=== PATIENT | male | born 2005 | race Caucasian/White ===

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

== ENCOUNTER 2024-07-23 16:11 | Emergency (ER) | payer OTHER, SELFPAY ==
[2024-07-23 16:30] VITALS: BP 120/50; PULSE 84; RESP 16; TEMP 36.7; O2SAT 100; BMI 25.8
--- NOTE | 2024-07-23 16:36 | ED.GENADULT ---
HPI - General Adult General Chief complaint: Urogenital-Male Stated complaint: STD check Time Seen by Provider: 07/23/24 16:44 Source: patient, RN notes reviewed and old records reviewed Mode of arrival: ambulatory Limitations: no limitations History of Present Illness ED Provider: Sarah MORENO narrative: 19-year-old male presents for evaluation of STD screening. patient reports that he was hooking up with a girl that also hooked up with some of my friends. a punching my friend said that they tested positive for either gonorrhea or chlamydia the patient denies any signs or symptoms currently no other complaints or concerns at this time Related Data Previous Rx's ?Medication ?Instructions ?Recorded albuterol sulfate 90 mcg/actuation 2 puff inhalation Q4-6H PRN 06/15/21 aerosol inhaler shortness of breath or wheezing #8.5 grams albuterol sulfate 2.5 mg/3 mL 2.5 mg (3 mL) inhalation Q4-6H PRN 08/08/21 (0.083 %) solution for nebulization shortness of breath or wheezing #15 mL ondansetron 4 mg disintegrating 4 mg PO TID PRN nausea and 11/19/23 tablet vomiting 5 days #10 tabs pantoprazole 40 mg tablet,delayed 40 mg PO DAILY #14 tabs 11/19/23 release (Protonix) doxycycline hyclate 100 mg tablet 100 mg PO BID #20 tabs 07/23/24 Allergies Allergy/AdvReac Type Severity Reaction Status Date / Time No Known Allergies Allergy Verified 07/23/24 16:38 [No Known Allergies*] Review of Systems Constitutional: Constitutional: Denies chills and Denies fever(s) Gastrointestinal: Gastrointestinal: Denies abdominal pain Genitourinary: Genitourinary: Denies genital pain, Denies dysuria, Denies penile discharge, Denies scrotal swelling and Denies testicular pain PMFSH Past Medical History Medical History Mild intermittent asthma Surgical History No pertinent past surgical history Family History Family History Mother No problems noted. Father No problems noted. Social History Social History Household Members: Family Alcohol intake: current Patient Tobacco Use Status: Never used Tobacco Substance Use Type: Marijuana Do you have a plan to hurt others: No Plan Physical Exam ED Vital Signs: Vital Signs - 24 hr 07/23/24 16:30 Temperature 98.1 F Pulse Rate 84 Respiratory Rate 16 Blood Pressure 120/50 L Pulse Oximetry 100 Oxygen Delivery Method Room Air BMI result Body Mass Index 25.8 Const General: healthy appearing, comfortable, no acute distress, alert and awake Nutritional Appearance: well nourished Orientation/consciousness: patient oriented x3 HENMT Head: Yes normocephalic and Yes atraumatic Neck Neck: Yes full ROM Resp Effort & Inspection: normal respiratory effort, able to speak in complete sentences and not labored Skin General skin exam: elasticity normal Neuro General: patient oriented x3 Cranial nerves: Yes Bilaterally intact EOM present Cognition (Neuro): normal cognition Extrem Other: Moving all extremities well without any obvious deformities Medical Decision Making Medical Decision Making MDM Narrative: 19-year-old male presents for evaluation of STI screening. He has no symptoms positive contacts. He will be tested and treated For both gonorrhea and chlamydia Differential Diagnosis Differential Diagnoses: The differential diagnosis associated with the presentation includes gonorrhea Chlamydia Urethritis UTI Discharge Plan Discharge Clinical Impression: Encounter for assessment of STD exposure Patient Disposition: Home, Self-Care Instructions: Safe Sex Practices (ED) Additional Instructions: you should abstain from sex until you finish your antibiotics. We will call you if you test positive Prescriptions: New doxycycline hyclate 100 mg tablet 100 mg PO BID Qty: 20 0RF No Action albuterol sulfate 90 mcg/actuation HFA aerosol inhaler 2 puff inhalation Q4-6H PRN (Reason: shortness of breath or wheezing) Qty: 8.5 1RF albuterol sulfate 2.5 mg /3 mL (0.083 %) solution for nebulization 2.5 mg inhalation Q4-6H PRN (Reason: shortness of breath or wheezing) Qty: 15 0RF pantoprazole [Protonix] 40 mg tablet,delayed release (DR/EC) 40 mg PO DAILY Qty: 14 0RF ondansetron 4 mg tablet,disintegrating 4 mg PO TID PRN (Reason: nausea and vomiting) 5 Days Qty: 10 0RF Print Language: Dominican
[2024-07-23 16:55] LABS: Appearance Urine Clear; Color Urine Yellow; Glucose Urine UA Negative (Negative); Leukocyte Esterase Urine Negative (Negative); Nitrite Urine Negative (Negative); PH 6.5 (5.0-9.0); Urine Blood Negative (Negative); Urine Ketones Negative (Negative); Urine Protein Negative (Neg-Trace)
[2024-07-23 16:59] LABS: Bacteria Urine None Seen (None Seen); Hyaline Casts Urine 0-2 /LPF (0-2); RBC Urine 0-2 /HPF (0-2); Squamous Epithelial Cell Urine 0-2 /HPF (0-2); WBC Urine 0-5 /HPF (0-5)
[2024-07-23] MEDS: Doxycycline Monohydrate 100 MG CAPSULE PO (17:01)
[2024-07-23] MEDS: cefTRIAXone sodium 500 MG VIAL IM (17:01)
[2024-07-23 17:11] VITALS: BP 120/50; PULSE 84; RESP 16; TEMP 36.7; O2SAT 100
[2024-07-23 18:35] LABS: CT PCR DETECTED (Not Detect.); NG PCR NOT DETECTED (Not Detect.)
== END 2024-07-23 17:12 | disposition home or self-care (01) ==
PROVIDERS: Physician Assistant; Emergency Provider Internal Medicine
DX: A74.9 Chlamydial infection, unspecified (principal); Z20.2 Contact with and (suspected) exposure to infections with a predominantly sexual mode of transmission
CPT/HCPCS: 81001; 87491; 87591; 96372; 99283; 99284; J0696

== ENCOUNTER 2024-11-13 18:11 | Emergency (ER) | payer OTHER, SELFPAY ==
[2024-11-13 18:31] VITALS: BP 115/70; PULSE 91; RESP 18; TEMP 36.5; O2SAT 99; BMI 27.3
--- NOTE | 2024-11-13 18:32 | ED_ITS ---
HPI - General Adult General Chief complaint: Urogenital-Male Stated complaint: ?std Time Seen by Provider: 11/13/24 19:31 Source: patient, RN notes reviewed and old records reviewed Mode of arrival: ambulatory History of Present Illness ED Provider: Mile Sorto PA-C HPI narrative: 19-year-old male with a past medical history of asthma presenting to the ED requesting STI testing, states his sexual partner tested positive chlamydia. Plan was to being sexually active with 1 partner. Denies symptoms at present including dysuria, hematuria, abdominal pain, genital lesions/discharge Related Data Previous Rx's ?Medication ?Instructions ?Recorded albuterol sulfate 90 mcg/actuation 2 puff inhalation Q4-6H PRN 06/15/21 aerosol inhaler shortness of breath or wheezing #8.5 grams albuterol sulfate 2.5 mg/3 mL 2.5 mg (3 mL) inhalation Q4-6H PRN 08/08/21 (0.083 %) solution for nebulization shortness of breath or wheezing #15 mL ondansetron 4 mg disintegrating 4 mg PO TID PRN nausea and 11/19/23 tablet vomiting 5 days #10 tabs pantoprazole 40 mg tablet,delayed 40 mg PO DAILY #14 tabs 11/19/23 release (Protonix) doxycycline hyclate 100 mg tablet 100 mg PO BID #20 tabs 07/23/24 doxycycline hyclate 100 mg tablet 100 mg PO BID 7 days #14 tabs 11/13/24 Allergies Allergy/AdvReac Type Severity Reaction Status Date / Time No Known Allergies Allergy Verified 11/13/24 18:32 [No Known Allergies*] Review of Systems Review of Systems: Yes all other systems are reviewed and are negative Constitutional: Constitutional: Reports as per [facility] Past Medical History Attestation statement: The following information was validated with the patient. Source: old records reviewed Medical History Mild intermittent asthma Surgical History No pertinent past surgical history Family History Family History Mother No problems noted. Father No problems noted. Social History Social History Household Members: Family Alcohol intake: current Patient Tobacco Use Status: Never used Tobacco Substance Use Type: Marijuana Advance Directives: No Advance Directives Information Provided: No Physical Exam ED Vital Signs: Vital Signs - 24 hr 11/13/24 20:38 Temperature 97.7 F Pulse Rate 91 Respiratory Rate 18 Blood Pressure 115/70 Pulse Oximetry 99 Oxygen Delivery Method Room Air BMI result Body Mass Index 27.3 Const General: cooperative, healthy appearing and no acute distress Orientation/consciousness: patient oriented x3 Limitations: no limitations HENMT Head: Yes normal to inspection and Yes atraumatic Ears: hearing grossly normal bilaterally General nose exam: Normal external nose present Face and sinus: Yes normal facial exam Eyes General: appearance normal, both eyes and all related structures EOM: EOMs intact bilaterally Neck Neck: Yes normal visual inspection and Yes no meningeal signs Resp Effort & Inspection: normal respiratory effort and no respiratory distress Cardio Rate: regular rate GI Inspection: Yes normal to inspection Palpation (GI): Soft to palpation Skin Rashes: no rashes Wounds: no wounds Neuro General: patient oriented x3, gait normal, tone normal, moves all extremities and no meningeal signs Cranial nerves: Yes CN's II-XII intact bilaterally Gait exam (Neuro): Normal gait present Extrem General: Yes normal to inspection Course Course Course Narrative: RME performed by Chary Salvador PA-C. Patient is a 19 year old assigned male at presenting to the emergency department with concerns for STIs after a partner stated they tested positive for chlamydia. Detailed physical exam and review of systems are deferred to the psychiatric clinician. Labs ordered. Patient placed back in the waiting room pending room availability and results. -2014--UA negative. STI testing pending Results discussed with patient including worrisome signs and symptoms and strict return precautions, and when to return to the emergency department. They verbalized understanding and feel safe for discharge at this time. Medications Administered Discontinued Medications Generic Name Dose Route Start Last Admin Trade Name Freq PRN Reason Stop Dose Admin Ceftriaxone Sodium 500 mg/ 0 mg 11/13/24 19:43 11/13/24 19:51 Lidocaine HCl 1 ml IM 11/13/24 19:44 1 kit ONCE ONE Administration Doxycycline Monohydrate 100 mg 11/13/24 19:43 11/13/24 19:51 Doxycycline Monohydrate 100 Mg Capsule PO 11/13/24 19:44 100 mg ONCE ONE Administration Medical Decision Making Medical Decision Making [facility] Narrative: 19-year-old male with a past medical history of asthma presenting to the ED requesting STI testing, states his sexual partner tested positive chlamydia. On exam VSS, NAD, nontoxic appearing, asymptomatic at present. Concern for STI. Rule out UTI. Low suspicion for torsion or intra-abdominal pathology. Agreeable to empiric treatment with Rocephin and doxy in the ED. STI testing ordered in triage including CT/NG, syphilis, HIV Please refer to course for remaining clinical decision making, interpretation of labs/imaging results, and discussions with consultants and/or family members. Differential Diagnosis Differential Diagnoses: The differential diagnosis associated with the presentation includes As above Admission/Observation Consideration of admission/observation: Escalation of care including admission/observation considered Lab Data [facility] Lab Attestation statement: I reviewed the patient's lab results. Labs: Lab Results 11/13/24 11/13/24 Range/Units 18:47 20:03 Urine Color Yellow Urine Appearance Clear Urine pH 5.5 (5.0-9.0) Ur Specific [place] >= 1.030 H (1.005-1.025) Urine Protein Negative (Neg-Trace) mg/dL Urine Glucose (UA) Negative (Negative) mg/dL Urine Ketones Trace (Negative) mg/dL Urine Blood Negative (Negative) Urine Nitrite Negative (Negative) Ur Leukocyte Esterase Negative (Negative) Chlam trachomat DNA PCR NOT DETECTED (Not Detect.) N.gonorrhoeae DNA (PCR) NOT DETECTED (Not Detect.) Radiology Impression Discussion of test interpretation with radiology: I have reviewed the radiologist's reading. External Record Review External record reviewed: Inpatient record, Office record, Outpatient record, Prior outpatient labs, Prior outpatient radiology, Primary care record and Outside ED record Tests considered The following testing was considered but not selected: As above Prescription Management I considered prescription management with: Antibiotic Chronic Conditions Patient?s care impacted by: Other Social Determinants Patient?s care significantly limited by Social Determinants of Health including: Other Social Determinant of Health Discharge Plan Discharge Clinical Impression: Possible exposure to STI Patient Disposition: Home, Self-Care Instructions: Sexually Transmitted Diseases (ED) Additional Instructions: You were tested for gonorrhea, chlamydia, syphilis, and HIV today, these results are currently pending You will be contacted with positive results only You were treated for gonorrhea and chlamydia, continue taking doxycycline as prescribed Follow-up with [facility] for further STI testing Please refrain from any sexual contact until you know the results of your cultures Follow up with your primary care doctor Prescriptions: New doxycycline hyclate 100 mg tablet 100 mg PO BID 7 Days Qty: 14 0RF No Action albuterol sulfate 90 mcg/actuation HFA aerosol inhaler 2 puff inhalation Q4-6H PRN (Reason: shortness of breath or wheezing) Qty: 8.5 1RF albuterol sulfate 2.5 mg /3 mL (0.083 %) solution for nebulization 2.5 mg inhalation Q4-6H PRN (Reason: shortness of breath or wheezing) Qty: 15 0RF doxycycline hyclate 100 mg tablet 100 mg PO BID Qty: 20 0RF pantoprazole [Protonix] 40 mg tablet,delayed release (DR/EC) 40 mg PO DAILY Qty: 14 0RF ondansetron 4 mg tablet,disintegrating 4 mg PO TID PRN (Reason: nausea and vomiting) 5 Days Qty: 10 0RF Referrals: [facility] [Provider Group] Interventions: ED Discharge Assessment Last Done: 11/13/24 20:38 Discharge Date/Time: 11/13/24 21:53 Print Language: Romansh
--- OUTSIDE RECORDS SUMMARY | 2024-11-13 19:40 | XMS_ITS | Clinical Summary ---
Author Organization [facility] Address [address] [place] [address] Phone Care Team Providers Care Delinquency Prevention Social Worker Name Role Phone IldaShannan MARYANNE Primary Care Provider [phone] Immunizations Immunization Administration Dates Next Due DTaP / Hep B / IPV 01/11/2005,2004, 005 DTaP 5 01/14/2006 Hib (HbOC) 01/11/2005,2004,2004 Hib (PRP-T) 10/17/2005 Influenza, injectable, trivalent 07/09/2006,11/0 09/2004 MMR 2005 Pneumococcal Conjugate 10/17/2005,01/11/2005,05/2005,2004 Varicella 2005 Family History Relation Name Status Comments Brother 1 Alive Brother: Asthma , Asthma Brother 2 Alive Brother: Asthma , Asthma Father Alive Father: Alive a nd well Mother Alive Mother: Alive a nd well Sister Alive Sister: Asthma Social History Tobacco Use Types Packs/Day Years Used Date Smoking Tobacco: Never Assessed Sex and Gender Information Value Date Recorded Sex Assigned at Not on file Legal Sex Male 4:16 PM EDT Gender Identity Not on file Sexual Orientation Not on file Plan of Treatment Health Maintenance Due Date Last Done Comments IPV Vaccines (4 of 4 - 4-dose series) 2008 01/11/2005, 2004, 2004 Varicella Vaccines (2 of 2 - 2-dose childhood series) 2008 2005 DTaP,Tdap,and Td Vaccines (5 - Tdap) 2015 01/14/2006, 01/11/2005, 2004, Additional history exists HPV Vaccines (1 - Male 3-dose series) 2019 Consider Men B Vaccine (1 of 2 - Bexsero 2-dose series) 2020 Men B Vaccine (1 of 2 - Standard) 2020 Influenza Vaccines (#1) 2024 07/09/2006, 07/02 COVID-19 Vaccine ( - ) 05/02/2024 Hepatitis B Vaccines Completed 01/11/2005, 2004, 2004 MMR Vaccines Completed 2005 HIB Vaccines Completed 10/17/2005, 12/30, 2004, Additional history exists Pneumococcal Vaccine Completed 10/17/2005, 01/11/2005, 2004, Additional history exists Hepatitis A Vaccines Aged Out No long er eligible based on patient's age to complete this topic Meningococcal Vaccine Aged Out No [place] eligible based on patient's age to complete this topic Care Teams Delinquency Prevention Social Worker Relationship Specialty Start Date End Date Shannan Gonsales NP PCP - General 04/11/17
[2024-11-13] MEDS: cefTRIAXone sodium 500 MG, Lidocaine HCl 1 % MPF 1 ML IM (19:51)
[2024-11-13] MEDS: Doxycycline Monohydrate 100 MG CAPSULE PO (19:51)
[2024-11-13 20:11] LABS: Appearance Urine Clear; Color Urine Yellow; Glucose Urine UA Negative (Negative); Leukocyte Esterase Urine Negative (Negative); Nitrite Urine Negative (Negative); PH 5.5 (5.0-9.0); Specific Gravity - Urine >= 1.030 (1.005-1.025); Urine Blood Negative (Negative); Urine Ketones Trace mg/dL (Negative); Urine Protein Negative (Neg-Trace)
[2024-11-13 20:38] VITALS: BP 115/70; PULSE 91; RESP 18; TEMP 36.5; O2SAT 99
--- NOTE | 2024-11-13 20:38 | PC.NURSE ---
pt discharge by provider, notified NICKOLAS Anaya
[2024-11-14 08:47] LABS: CT PCR NOT DETECTED (Not Detect.); NG PCR NOT DETECTED (Not Detect.)
[2024-11-15 08:17] LABS: HIV AB/AG Nonreactive (Nonreactive); HIV Num 1 0.07 S/CO (0.00-0.99); Syphilis Screen Nonreactive (Nonreactive)
== END 2024-11-13 21:53 | disposition home or self-care (01) ==
PROVIDERS: Physician Assistant; Physician Assistant Medical; Emergency Provider Emergency Medicine
DX: Z20.2 Contact with and (suspected) exposure to infections with a predominantly sexual mode of transmission (principal); Z79.899 Other long term (current) drug therapy
CPT/HCPCS: 36415; 81003; 86780; 87389; 87491; 87591; 96372; 99284; J0696; J2003